=== PATIENT | male | born 1930 | race Caucasian/White ===

== ENCOUNTER → 2016-09-02 | Outpatient (REF) | payer MEDICARE, OTHER ==
[2016-09-02 09:31] LABS: BASOPHILS % (AUTO) 1 % (0-2); EOSINOPHILS # (AUTO) 0.2 10^3uL; EOSINOPHILS % (AUTO) 3 % (0-4); LYMPHOCYTES # (AUTO) 0.9 X10^3; MEAN CORPUSCULAR HGB CONC 32.9 g/dL (31.0-37.0); MEAN CORPUSCULAR VOLUME 96 FL (80-100); MEAN PLATELET VOLUME 9.9 FL (6.0-9.5); MONOCYTES # (AUTO) 0.7 X10^3; MONOCYTES % (AUTO) 14 % (3-11); NEUTROPHILS # (AUTO) 3.3 X10^3; NEUTROPHILS % (AUTO) 65 % (51-67); PLATELET COUNT 152 10^3uL (150-450); WHITE BLOOD COUNT 5.03 10^3uL (4.0-11.0)
[2016-09-02 09:34] LABS: MEAN CORPUSCULAR HEMOGLOBIN 31.7 PG (26.0-34.0)
[2016-09-02 11:19] LABS: ALBUMIN 3.6 g/dL (3.4-5.0); ANION GAP 13.6 MEQ/L (3-15); CALCULATED IONIZED CALCIUM 4.3 mg/dL (3.8-4.6); TOTAL PROTEIN 6.5 g/dL (6.4-8.5)
== END ==
LOC: LAB 09:03
PROVIDERS: ATTEND Nurse Practitioner Family
DX: S40.021A Contusion of right upper arm, initial encounter (principal); I10 Essential (primary) hypertension; X58.XXXA Exposure to other specified factors, initial encounter
CPT/HCPCS: 80053; 80061; 85025

== ENCOUNTER → 2016-09-20 | Outpatient (REF) | payer MEDICARE, OTHER ==
[~2016-09-20] MED LIST: AC325T PO; AC500T PO; ACET325T38 PO; ALBU2.5V12 INH; ALPR0.25 PO; AMD200T PO; ASPI-860 PO; ATOR40TA2 PO; DILT180T7 PO; ENXP100I SC; HCT25T PO; LISI5TAB14 PO; LORA-404 PO; METO-270 PO; METO-272 PO; METO100T2 PO; MTP25TSR; NF-FLON16G; NITR0.4T SL; ONDA4TAB8 PO; SODI1TAB2 PO; TAMS0.4C2 PO; TICA90TA PO; TRAM-25 PO; TRM50TRX PO; WARF5TAB; WARF5TAB PO
[2016-09-20 12:41] LABS: BASOPHILS % (AUTO) 1 % (0-2); EOSINOPHILS # (AUTO) 0.1 10^3uL; EOSINOPHILS % (AUTO) 3 % (0-4); LYMPHOCYTES # (AUTO) 0.9 X10^3; MEAN CORPUSCULAR HGB CONC 32.9 g/dL (31.0-37.0); MEAN CORPUSCULAR VOLUME 95 FL (80-100); MEAN PLATELET VOLUME 10.1 FL (6.0-9.5); MONOCYTES # (AUTO) 0.6 X10^3; MONOCYTES % (AUTO) 14 % (3-11); NEUTROPHILS # (AUTO) 2.8 X10^3; NEUTROPHILS % (AUTO) 63 % (51-67); PLATELET COUNT 160 10^3uL (150-450); WHITE BLOOD COUNT 4.51 10^3uL (4.0-11.0)
[2016-09-20 12:51] LABS: MEAN CORPUSCULAR HEMOGLOBIN 31.3 PG (26.0-34.0)
== END ==
LOC: LAB 12:21
PROVIDERS: ATTEND Family Medicine
DX: N18.2 Chronic kidney disease, stage 2 (mild) (principal); M1A.09X0 Idiopathic chronic gout, multiple sites, without tophus (tophi)
CPT/HCPCS: 84550; 85025